=== PATIENT | female | born 1940 | race Caucasian/White ===

== ENCOUNTER 2022-12-17 20:28 | Inpatient (IN) | payer MEDICARE, BC ==
[~2022-12-17] VITALS: Ht 180.3 cm; Wt 78.9 kg
[2022-12-17] MEDS ORDERED: ONDANSETRON HCL 4 MG TABLET ONE (21:25)
[2022-12-17] MEDS ORDERED: TIZANIDINE HCL 4 MG TABLET PO ONE (21:30)
[2022-12-17] MEDS ORDERED: ONDANSETRON ODT 4 MG TAB.RAPDIS SL ONE (21:30)
--- NOTE | 2022-12-17 23:30 | NUR ---
Pt. received awake alert and ox3 on stretcher in room5a. Initial assessment rendered. Endorsed to check writer salesperson by [facility]. Pt. waiting medical clearance and on 5149.
--- NOTE | 2022-12-18 01:15 | NUR ---
Report called to [facility].
[2022-12-18] MEDS ORDERED: AMLO-212 PO (02:14)
[2022-12-18] MEDS ORDERED: ASCO-375 PO (02:15)
[2022-12-18] MEDS ORDERED: CLON0.5T4 PO (02:16)
[2022-12-18] MEDS ORDERED: DOCU100C36 PO (02:17)
[2022-12-18] MEDS ORDERED: DOXE6TAB3 PO (02:19)
[2022-12-18] MEDS ORDERED: EZET10TA15 PO (02:20)
[2022-12-18] MEDS ORDERED: HYDR25TA4 PO (02:21)
[2022-12-18] MEDS ORDERED: TIZA2CAP7 PO (02:23)
[2022-12-18] MEDS ORDERED: TRAM50TA2 PO ×2 (02:24→02:25)
[2022-12-18] MEDS ORDERED: DOCUSATE SODIUM 100 MG CAPSULE PO PRN (02:45)
[2022-12-18] MEDS ORDERED: BLOOD SUGAR DIAGNOSTIC 1 EACH STRIP VI ONE (04:00)
[2022-12-18] MEDS ORDERED: LORAZEPAM 1 MG TABLET PO PRN (04:00)
[2022-12-18] MEDS ORDERED: MAGNESIUM HYDROXIDE 30 ML LIQUID UDC PO PRN (04:00)
[2022-12-18] MEDS ORDERED: ACETAMINOPHEN 325 MG TABLET PO PRN (04:00)
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
[2022-12-18 07:30] VITALS: BP 116/84
[2022-12-18] MEDS: TIZANIDINE HCL 4 MG TABLET PO SCH ×3 (10:30→21:27)
[2022-12-18] MEDS: HYDROCHLOROTHIAZIDE 25 MG TABLET PO SCH (10:32)
[2022-12-18] MEDS: AMLODIPINE 5 MG TABLET PO SCH (10:33)
[2022-12-18] MEDS: EZETIMIBE 10 MG TABLET PO SCH (10:35)
[2022-12-18] MEDS: ASCORBIC ACID 500 MG TABLET PO SCH (10:52)
[2022-12-18] MEDS: CLONAZEPAM 0.5 MG TABLET PO PRN ×2 (10:53→21:28)
[2022-12-18] MEDS: ESCITALOPRAM OXALATE 10 MG TABLET PO SCH (11:00)
--- NOTE | 2022-12-18 11:15 | NUR ---
OTIS Initial Discharge Note: Pt currently resides at her home with her partner who is not always there, Ana Rosa [phone] located at [address] [place] [address]. Pt's number ([phone]). Pt stated she would like to return to her home in [place]. Pt stated she has IHSS in process to help assist her at home. SW will contact pt's partner, Ana Rosa and discuss pt's discharge plan. Pt stated she has no DPOA or conservator. OTIS will continue to work with pt, family and MD to ensure a safe and proper discharge plan.
[2022-12-18] MEDS: TRAMADOL HCL 50 MG TABLET PO PRN ×2 (14:12→21:27)
[2022-12-18 16:00] VITALS: BP 103/36
--- NOTE | 2022-12-18 16:22 | NUR ---
OTIS Family Contact: OTIS spoke with pt's partner, Ana Rosa ([phone]) regarding pt's discharge plan. Ana Rosa stated he will be able to provide transportation for the pt to return home upon discharge if pt does not have other means of transportation available. Ana Rosa confirmed that pt's dog is safe and under his care at their home until pt's return home. Pt is informed. Ana Rosa confirmed that pt does not have other family contact. OTIS will continue to follow-up with Ana Rosa regarding pt's discharge and treatment updates. Ana Rosa was grateful and agreeable.
--- NOTE | 2022-12-18 16:25 | NUR ---
Clinical SW Note: SW informed Susu and officer, Amadou from [place] animal control [phone] that the pt's dog is safe per pt's partner, Ana Rosa [phone] at their home.
--- NOTE | 2022-12-18 19:09 | NUR ---
Patient has been anxious. Pt comes to the nursing station, anxious, asks for her cell phone, states she needs to check on her dog. Pt has difficulty retaining information. Pt was provided with medications for anxiety. Pt has poor insight and poor plan for self care. Pt declined anti-depressants that were recently prescribed.
[2022-12-18 21:14] VITALS: BP 130/70
[2022-12-19] MEDS: TIZANIDINE HCL 4 MG TABLET PO SCH ×3 (07:16→21:55)
[2022-12-19 07:30] VITALS: BP 119/46
[2022-12-19] MEDS: ESCITALOPRAM OXALATE 10 MG TABLET PO SCH ×2 (09:00→09:21)
[2022-12-19] MEDS: HYDROCHLOROTHIAZIDE 25 MG TABLET PO SCH (09:20)
[2022-12-19] MEDS: EZETIMIBE 10 MG TABLET PO SCH (09:22)
[2022-12-19] MEDS: AMLODIPINE 5 MG TABLET PO SCH (09:22)
[2022-12-19] MEDS: ASCORBIC ACID 500 MG TABLET PO SCH (09:22)
[2022-12-19] MEDS: CLONAZEPAM 0.5 MG TABLET PO PRN ×2 (12:41→21:03)
[2022-12-19] MEDS: TRAMADOL HCL 50 MG TABLET PO PRN ×2 (12:42→21:11)
[2022-12-19 16:00] VITALS: BP 86/54
[2022-12-19 20:10] VITALS: BP 142/69
[2022-12-19] MEDS ORDERED: ATORVASTATIN 20 MG TABLET PO SCH (21:00)
[2022-12-20] MEDS: TRAMADOL HCL 50 MG TABLET PO PRN ×3 (03:32→21:28)
[2022-12-20] MEDS: TIZANIDINE HCL 4 MG TABLET PO SCH ×3 (06:30→21:21)
[2022-12-20 07:30] VITALS: BP 106/65
[2022-12-20] MEDS: HYDROCHLOROTHIAZIDE 25 MG TABLET PO SCH (08:37)
[2022-12-20] MEDS: AMLODIPINE 5 MG TABLET PO SCH (08:38)
[2022-12-20] MEDS: ASCORBIC ACID 500 MG TABLET PO SCH (08:39)
[2022-12-20] MEDS: EZETIMIBE 10 MG TABLET PO SCH (08:39)
[2022-12-20] MEDS: FLUOXETINE HCL 10 MG CAPSULE PO SCH (10:15)
[2022-12-20] MEDS: CLONAZEPAM 0.5 MG TABLET PO PRN ×2 (10:15→21:21)
[2022-12-20] MEDS ORDERED: FLUCONAZOLE 100 MG TABLET PO ONE (15:00)
[2022-12-20 16:00] VITALS: BP 150/70
--- NOTE | 2022-12-20 16:02 | NUR ---
Gps/Bottom Finisher- Complained of lower back pain , offered ultram 50 mg, verbalized adequate relief. Refused to attend her group therapy, comes out to make needs needs, isolative behavior, interacts when engaged. Claimed she wished her Psychiatrist spend more time with her . Compliant with prescribed meds.
[2022-12-20 20:04] VITALS: BP 141/83
[2022-12-20 21:59] LABS: *BILIRUBIN,URIN NEGATIVE (NEGATIVE); *CLARITY,URINE CLEAR (CLEAR); *COLOR,URINE LIGHT YELLOW (YELLOW); *KETONES,URINE NEGATIVE (NEGATIVE); *UROBILINOGEN,URINE 0.2 E.U./dl (NORMAL); LEUKOCYTE ESTERASE ,URINE 1+ (NEGATIVE); NITRITE, URINE NEGATIVE (NEGATIVE); UGLUCOSE NEGATIVE (NEGATIVE)
[2022-12-20 22:35] LABS: *BLOOD, URINE TRACE (NEGATIVE)
[2022-12-20 23:32] LABS: BACTERIA,URINE NONE SEEN /HPF (NONE SEEN); RBC,URINE 0-3 /HPF (0-3); SQUAMOUS EPITHELIAL CELL,UR FEW /HPF (NONE SEEN); WBC,URINE NONE SEEN /HPF (0-3)
[2022-12-21] MEDS: TIZANIDINE HCL 4 MG TABLET PO SCH ×3 (06:04→21:43)
[2022-12-21] MEDS: CLONAZEPAM 0.5 MG TABLET PO PRN ×3 (06:09→21:43)
[2022-12-21] MEDS: TRAMADOL HCL 50 MG TABLET PO PRN ×3 (06:14→20:21)
--- NOTE | 2022-12-21 06:28 | NUR ---
GPS: Pt. now awake and just requested for pain med.and anxiety pill which was given by staff. Re-assured prn. Rest periods encouraged to facilitate relief. Encouraged to attend activities/groups during the day. Safe environment provided. Denies SI. Will continue to monitor.
[2022-12-21 07:53] VITALS: BP 93/59
[2022-12-21] MEDS: HYDROCHLOROTHIAZIDE 25 MG TABLET PO SCH (08:25)
[2022-12-21] MEDS: ASCORBIC ACID 500 MG TABLET PO SCH (08:26)
[2022-12-21] MEDS: AMLODIPINE 5 MG TABLET PO SCH (08:26)
[2022-12-21] MEDS: EZETIMIBE 10 MG TABLET PO SCH (08:26)
[2022-12-21] MEDS: FLUOXETINE HCL 10 MG CAPSULE PO SCH (08:26)
[2022-12-21 16:15] VITALS: BP 145/76
[2022-12-21] MEDS: CLOTRIMAZOLE 1% CREAM 30 GM TUBE TOP SCH ×2 (16:22→21:41)
--- NOTE | 2022-12-21 16:48 | NUR ---
GPS: Nursing Notes: Destructive Behavior To Self: Patient is awake and responding to her name, isolative and withdrawn in her room, interactive with her roommate, depressed mood and blunted affect, low energy level, refusing to participate in therapeutic groups, unkempt appearance, ambulatory with fww, denies SI, A/Ox4, but unable to formulate a viable plan for self care, continue to monitor for safety, continue with treatment plan.
[2022-12-21 20:00] VITALS: BP 132/73
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
[2022-12-22] MEDS: ZOLPIDEM 5 MG TABLET PO PRN (02:09)
[2022-12-22] MEDS: TIZANIDINE HCL 4 MG TABLET PO SCH ×3 (06:24→22:48)
[2022-12-22] MEDS: CLONAZEPAM 0.5 MG TABLET PO PRN ×3 (06:30→23:37)
[2022-12-22 08:10] VITALS: BP 99/66
[2022-12-22] MEDS: ASCORBIC ACID 500 MG TABLET PO SCH (08:18)
[2022-12-22] MEDS: EZETIMIBE 10 MG TABLET PO SCH (08:18)
[2022-12-22] MEDS: CLOTRIMAZOLE 1% CREAM 30 GM TUBE TOP SCH ×2 (08:19→16:09)
[2022-12-22] MEDS: FLUOXETINE HCL 10 MG CAPSULE PO SCH (08:19)
[2022-12-22] MEDS: HYDROCHLOROTHIAZIDE 25 MG TABLET PO SCH (08:19)
[2022-12-22] MEDS: AMLODIPINE 5 MG TABLET PO SCH (08:19)
[2022-12-22] MEDS: TRAMADOL HCL 50 MG TABLET PO PRN ×3 (08:23→22:52)
[2022-12-22] MEDS: MAG HYDROX/AL HYDROX/SIMETH 30 ML LIQUID UDC PO PRN ×2 (10:42→17:17)
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
[2022-12-22 16:09] VITALS: BP 131/69
[2022-12-22 19:59] VITALS: BP 102/68
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
[2022-12-23] MEDS: ZOLPIDEM 5 MG TABLET PO PRN ×2 (01:09→22:24)
[2022-12-23] MEDS: TIZANIDINE HCL 4 MG TABLET PO SCH ×3 (06:53→20:23)
[2022-12-23 07:44] VITALS: BP 118/75
[2022-12-23] MEDS: EZETIMIBE 10 MG TABLET PO SCH (08:08)
[2022-12-23] MEDS: CLONAZEPAM 0.5 MG TABLET PO PRN ×2 (08:09→20:22)
[2022-12-23] MEDS: FLUOXETINE HCL 10 MG CAPSULE PO SCH (08:09)
[2022-12-23] MEDS: AMLODIPINE 5 MG TABLET PO SCH (08:10)
[2022-12-23] MEDS: TRAMADOL HCL 50 MG TABLET PO PRN ×3 (08:11→20:23)
[2022-12-23] MEDS: HYDROCHLOROTHIAZIDE 25 MG TABLET PO SCH (08:11)
[2022-12-23] MEDS: CLOTRIMAZOLE 1% CREAM 30 GM TUBE TOP SCH ×2 (08:12→16:31)
[2022-12-23] MEDS: GLUCERNA SHAKE 237 ML CAN PO SCH (08:12)
[2022-12-23] MEDS: ASCORBIC ACID 500 MG TABLET PO SCH (08:12)
--- NOTE | 2022-12-23 11:42 | NUR ---
OTIS Family Contact: SW spoke with pt's partner, Ana Rosa ([phone]) and left a voicemail for a call back regarding pt's discharge plan and court hearing update.
--- NOTE | 2022-12-23 11:56 | NUR ---
Clinical SW Note: This SW spoke with pt today regarding her discharge plan to return to her home in [place] with her boyfriend, Ana Rosa ([phone]). Pt appeared confused and stated, "[facility] in [place] is helping her find a home and [facility] stated they can take me home from here." OTIS informed pt that [facility] stated to this gag writer that they do not provide transportation to return home. Pt appeared argumentative and repeatedly sated the same information. Pt requires constant redirection. OTIS stated Ana Rosa confirmed transportation assistance last week if pt does not have other means of transportation upon discharge. OTIS does not have confirmation from Ana Rosa at this time for pt's safe transportation update by Ana Rosa after leaving a voicemail today for a call back. Pt continued to state that Ana Rosa does not need to come because [facility] will.
--- NOTE | 2022-12-23 12:22 | NUR ---
OTIS Family Contact: SW spoke with pt's partner, Ana Rosa ([phone]) and left a voicemail for a call back regarding pt's discharge plan and court hearing update.
--- NOTE | 2022-12-23 14:52 | NUR ---
patient had 14 day PC hearing today ,was released by court, patient agree to sign voluntary for stay here waiting for the Ride home.
--- NOTE | 2022-12-23 16:24 | NUR ---
OTIS Family Contact: OTIS spoke with pt's partner, Ana Rosa ([phone]) regarding pt's discharge plan. Ana Rosa stated he has a fever at this time and is unable to confirm whether he will be well enough to provide transportation for the pt upon discharge. Ana Rosa is aware that pt is hospitalized as voluntary now. OTIS will continue to update Rich with discharge updates.
[2022-12-23 16:36] VITALS: BP 107/62
--- NOTE | 2022-12-23 18:05 | NUR ---
GPS: Nursing Notes: Destructive Behavior To Self: Patient is awake and responding to her name, refusing to participate in therapeutic groups, isolative in her room, A/Ox3, unable to formulate a viable plan for self care, depressed mood, withdrawn affect, denies SI, continue to monitor for safety, continue with treatment plan.
[2022-12-23 19:44] VITALS: BP 131/65
[2022-12-24] MEDS: TIZANIDINE HCL 4 MG TABLET PO SCH (06:08)
[2022-12-24 08:02] VITALS: BP 104/57
[2022-12-24] MEDS: TRAMADOL HCL 50 MG TABLET PO PRN (08:32)
[2022-12-24] MEDS: EZETIMIBE 10 MG TABLET PO SCH (08:32)
[2022-12-24] MEDS: ASCORBIC ACID 500 MG TABLET PO SCH (08:32)
[2022-12-24] MEDS: FLUOXETINE HCL 10 MG CAPSULE PO SCH (08:32)
[2022-12-24] MEDS: GLUCERNA SHAKE 237 ML CAN PO SCH (08:33)
[2022-12-24] MEDS: AMLODIPINE 5 MG TABLET PO SCH (08:33)
[2022-12-24] MEDS: CLONAZEPAM 0.5 MG TABLET PO PRN (08:33)
[2022-12-24] MEDS: HYDROCHLOROTHIAZIDE 25 MG TABLET PO SCH (08:33)
[2022-12-24] MEDS: CLOTRIMAZOLE 1% CREAM 30 GM TUBE TOP SCH (08:34)
--- NOTE | 2022-12-24 11:23 | NUR ---
OTIS Discharge Note: Pt will be discharged home located at [address] [place] [address] via pts significant other, Nathalie private vehicle transportation ([phone]) at 12PM. OTIS spoke with Ana Rosa who is aware and agreeable with the discharge plan. Ana Rosa is ready to accept the pt home today. Pt is aware and agreeable with discharge plan. Pt is alert and oriented x4, is unable to plan for self-care at this time. However, pt is willing to return to her home with her significant other, Ana Rosa. Pt denies any suicidal or homicidal ideation. Pt will follow-up with her assigned psychiatrist at [facility] [address], [place] [address] ([phone]) and her outpatient Physician Recruiter. Pt was unable to recall the Doctors name. Pt presents with calm mood and congruent affect. PHARMACY: [facility] [address] , [place] [address]. ([phone]).
--- NOTE | 2022-12-24 12:42 | NUR ---
GPS: Nursing Notes: Discharge Notes: Patient is awake and responding to her name, complaint with her medications, denies SI/HI, denies AH/VH, denies pain or discomfort, denies SOB, released by the court, discharge home at [address], [place] [address]. Patient's partner - Ana Rosa picked her up, transported home via private vehicle with her partner, took all her belongings with her including her 8 rings given to her by the charge nurse and clinical social worker. instructions and prescription given to the patient. Patient will follow-up with her assigned psychiatrist at [facility] [address], [place] [address] ([phone]) and her outpatient Electronic Engineering Technician. Pt was unable to recall the Doctors name.
== END 2022-12-24 12:30 | disposition home or self-care (01) | DRG 885 ==
LOC: ER 20:28 → GPS 12-18 02:45
PROVIDERS: ADMIT Psychiatry & Neurology Psychiatry; ATTEND Nurse Practitioner Family
DX: F33.2 Major depressive disorder, recurrent severe without psychotic features (principal); R45.851 Suicidal ideations; E03.9 Hypothyroidism, unspecified; G89.29 Other chronic pain; M54.9 Dorsalgia, unspecified; Z86.711 Personal history of pulmonary embolism; M06.9 Rheumatoid arthritis, unspecified; L30.4 Erythema intertrigo; I10 Essential (primary) hypertension; F41.1 Generalized anxiety disorder; Z59.89 Other problems related to housing and economic circumstances; Z20.822 Contact with and (suspected) exposure to COVID-19; E78.5 Hyperlipidemia, unspecified; Z86.39 Personal history of other endocrine, nutritional and metabolic disease; Z88.1 Allergy status to other antibiotic agents; Z88.8 Allergy status to other drugs, medicaments and biological substances
CPT/HCPCS: 36415; 71045; 84443; 93005; Q0162